=== PATIENT | female | born 1995 | race Caucasian/White ===

== ENCOUNTER 2016-04-17 01:08 | Emergency (ER) | payer OTHER ==
--- NOTE | 2016-04-17 01:29 | EDPHY ---
H & P Time Seen by Provider: 04/17/16 01:12 HPI/ROS: CHIEF COMPLAINT: ETOH, fall out of car HISTORY OF PRESENT ILLNESS: 20-year-old female presents to the emergency department on an arc hold by EMS after she apparently drank a large amount of alcohol and got out of the car and fell. It is not clear if she hit her head. She has vomited multiple times per EMS. I am unable to obtain any history from this patient. REVIEW OF SYSTEMS: Unobtainable (Carolyn Barnett) Past Medical/Surgical History: Unknown (Carolyn Barnett) Social History: Unknown (Carolyn Barnett) Physical Exam: General Appearance: lethargic, no distress. Smells strongly of alcohol. Dried blood noted in the right nostril. Vomiting. Eyes: Pupils equal and round. Extraocular motions are all intact. ENT: Mouth: Mucous membranes moist. Respiratory: No wheezing, rhonchi, or rales, lungs are clear to auscultation. Cardiovascular: Regular rate and rhythm. Gastrointestinal: Abdomen is soft and nontender, no masses, no rebound or guarding, bowel sounds normal. Neurological: Uncooperative, cannot determine. Skin: Warm and dry, no rashes. Musculoskeletal: Patient removed her own cervical collar. Nontender to palpate along cervical collar. Extremities: Full range of motion and no peripheral edema. Psychiatric: Mildly agitated. (Carolyn Barnett) Constitutional: Initial Vital Signs Heart Rate 89 04/17/16 01:10 Respiratory Rate 16 04/17/16 01:10 Blood Pressure 108/64 04/17/16 01:10 O2 Sat (%) 90 L 04/17/16 01:10 O2 Delivery Mode Room Air Allergies/Adverse Reactions: No Known Allergies Allergy (Unverified 04/17/16 05:32) Home Medications: Medication Instructions Recorded AZITHROMYCIN [Z-PACK] 250 mg PO DAILY 04/17/16 Adderall 20 mg (*) 04/17/16 Albuterol 04/17/16 Flovent 110 MCG Hfa MDI (*) 04/17/16 Prozac 10 MG (*) 04/17/16 Medical Decision Making ED Course/Re-evaluation: 20-year-old female presents by EMS after she apparently became intoxicated and fell getting out of car. It is not clear whether this car was moving. Laboratory studies are pending. CT imaging of the head has been ordered. Patient refused to wear cervical collar. (Millie Barnettrina Marcos) CT scan of the Head w/o contrast. The results of the study are negative for anything acute. The study was read by Dr. Manzo. I viewed the images myself on the PACS system. 0458: Re-examination at this time this patient remains intoxicated with alcohol however does respond to verbal stimuli. She still highly intoxicated needs more time to clear her alcohol. Her alcohol level was elevated 350+ 0608: Patient ambulated well to the bathroom. she is still intoxicated with alcohol she will need a safe ride home. (Tam Mabry) Differential Diagnosis: Altered mental status including but not limited to hypoglycemia, infectious process, electrolyte abnormality, head injury and intoxicants. Head injury including but not limited to concussion, skull fracture, intraparenchymal contusion, subarachnoid, subdural and epidural hematoma. (Olivablayne MillieCarolyn Marcos) Care Turn Over: Care will be turned over to Dr. Tam Mabry at shift change, 2:00 a.m.. ( Millie Barnettrina Marcos) - Data Points Laboratory Results: Laboratory Results 04/17/16 01:40 04/17/16 01:40 04/17/16 01:40 WBC 11.62 H 10^3/uL (3.80-9.50) RBC 4.17 L 10^6/uL (4.18-5.33) Hgb 13.2 g/dL (12.6-16.3) Hct 38.3 % (38.0-47.0) MCV 91.8 fL (81.5-99.8) MCH 31.7 pg (27.9-34.1) MCHC 34.5 g/dL (32.4-36.7) RDW 12.3 % (11.5-15.2) Plt Count 292 10^3/uL (150-400) MPV 9.0 fL (8.7-11.7) Neut % (Auto) 53.0 % (39.3-74.2) Lymph % (Auto) 37.3 % (15.0-45.0) [place] % (Auto) 6.5 % (4.5-13.0) Eos % (Auto) 1.5 % (0.6-7.6) Baso % (Auto) 1.4 % (0.3-1.7) Nucleat RBC Rel Count 0.0 % (0.0-0.2) Absolute Neuts (auto) 6.16 10^3/uL (1.70-6.50) Absolute Lymphs (auto) 4.34 H 10^3/uL (1.00-3.00) Absolute Monos (auto) 0.75 10^3/uL (0.30-0.80) Absolute Eos (auto) 0.17 10^3/uL (0.03-0.40) Absolute Basos (auto) 0.16 H 10^3/uL (0.02-0.10) Absolute Nucleated RBC 0.00 10^3/uL (0-0.01) Immature Gran % 0.3 % (0.0-1.1) Immature Gran # 0.04 10^3/uL (0.00-0.10) Sodium 144 mEq/L (134-144) Potassium 3.9 mEq/L (3.5-5.2) Chloride 110 mEq/L (97-110) Carbon Dioxide 23 mEq/l (22-31) Anion Gap 11 mEq/L (8-16) BUN 16 mg/dL (7-23) Creatinine 0.8 mg/dL (0.6-1.0) Estimated GFR > 60 Glucose 84 mg/dL (70-100) Calcium 8.5 mg/dL (8.5-10.4) Beta HCG, Qual NEGATIVE Ethyl Alcohol 351 H mg/dL (0-10) Medications Given: Discontinued Medications Ondansetron HCl (Zofran) 4 mg IVP EDNOW ONE Stop: 04/17/16 03:56 Last Admin: 04/17/16 03:55 Dose: 4 mg Ondansetron HCl (Zofran) 4 mg IVP EDNOW ONE Stop: 04/17/16 01:31 Last Admin: 04/17/16 01:40 Dose: 4 mg Departure - Departure Disposition: Home, Routine, Self-Care Clinical Impression: Alcohol intoxication Qualifiers: Complication of substance-induced condition: uncomplicated Qualifier Code: ( F10.120) Alcohol abuse with intoxication, uncomplicated Instructions: Alcohol Intoxication (ED), Abuse of Alcohol (ED) Referrals: Patient,NotPresent [Primary Care Provider] - As per Instructions
[2016-04-17] MEDS ORDERED: ONDANSETRON 4 MG/2 ML VIAL IVP ONE ×2 (01:30→03:55)
[2016-04-17] MEDS ORDERED: ONDANSETRON 4 MG/2 ML VIAL ONE ×2 (01:34→03:52)
[2016-04-17 01:47] LABS: % IMMATURE GRANULYOCYTES 0.3 % (0.0-1.1); ABSOLUTE IMMATURE GRANULOCYTES 0.04 10^3/uL (0.00-0.10); ADD DIFF? NO; ADD MORPH? NO; ADD SCAN? NO; ATYPICAL LYMPHOCYTE FLAG 80 (0-99); FRAGMENT RBC FLAG 0 (0-99); HEMATOCRIT 38.3 % (38.0-47.0); HEMOGLOBIN 13.2 g/dL (12.6-16.3); LEFT SHIFT FLG 0 (0-99); LIPEMIA HEMOLYSIS FLAG 90 (0-99); MEAN CELL HEMOGLOBIN 31.7 pg (27.9-34.1); MEAN CELL HEMOGLOBIN CONCENTR. 34.5 g/dL (32.4-36.7); MEAN CELL VOLUME 91.8 fL (81.5-99.8); PLATELET CLUMPS FLAG 10 (0-99); PLATELET COUNT 292 10^3/uL (150-400); RED BLOOD CELL COUNT 4.17 10^6/uL (4.18-5.33); RED CELL DISTRIBUTION WIDTH 12.3 % (11.5-15.2)
[2016-04-17 01:58] LABS: ANION GAP 11 mEq/L (8-16); CALCIUM 8.5 mg/dL (8.5-10.4); CARBON DIOXIDE 23 mEq/l (22-31); CHLORIDE 110 mEq/L (97-110); CREATININE 0.8 mg/dL (0.6-1.0); GLOMERULAR FILTRATION RATE > 60; GLUCOSE 84 mg/dL (70-100); POTASSIUM 3.9 mEq/L (3.5-5.2); SODIUM 144 mEq/L (134-144)
[2016-04-17 02:13] LABS: ETHANOL SERUM 351 mg/dL (0-10)
[2016-04-17] MEDS ORDERED: NS 1,000 ML IV ONE (02:30)
[2016-04-17 06:15] VITALS: BP 126/76; PULSE 78; RESP 18; TEMP 97.9; O2SAT 94
--- NOTE | 2016-04-17 10:28 | CT ---
Unenhanced CT Scan of the Brain Clinical History: 20-year-old inebriated female found down and unresponsive with a small amount of blood in one of the nares, but no other obvious physical trauma. Rule out acute intracranial abnormality. Technique: Standard unenhanced axial CT images were acquired from the skull base to the skull vertex, reformatted at 5.00 and 1.50 mm increments, and reviewed in bone, brain, and subdural windows. The DFOV is 27.5 cm. Parasagittal and paracoronal reconstructed images are provided. Dose reduction protocol was used. Because of initial significant motion artifact, the study was repeated. Comparison Study: None. Findings: The ventricles and basilar cisterns are normal in size, and symmetrical in configuration. There is no midline shift, or other evidence of mass effect. There is no acute or subacute abnormal intra- or extraaxial blood collection, or infarction. There is no evidence of a skull fracture. There is chronic mucosal thickening associated with the paranasal sinuses, most pronounced at the maxillary, ethmoid, and frontal sinuses. The craniocervical junction, sella turcica, pineal gland, and the orbits are unremarkable. The temporomandibular joints are anatomically aligned. Impression: 1. There is no acute intracranial abnormality identified. 2. Chronic simmons-paranasal sinus mucosal thickening, most pronounced at the maxillary, ethmoid, and frontal sinuses. If there is further clinical concern regarding the patient's symptoms, MR imaging could be considered. I provided a preliminary interpretation to Dr. Tam Mabry at 2:08 a.m. on Tuesday, April 17, 2016 regarding the above findings. My final interpretation is concordant with my initial impression. [id number] POS 99 MTDD
== END 2016-04-17 07:54 | disposition home or self-care (01) ==
LOC: EDUNIT#
DX: F10.120 Alcohol abuse with intoxication, uncomplicated (principal)
CPT/HCPCS: 96374; G0480; J2405